=== PATIENT | male | born 1965 | race Caucasian/White ===

== ENCOUNTER → 2016-10-29 | Outpatient (CLI) | payer BC ==
[~2016-10-29] MED LIST: ABILIFY; ABILIFY PO; ABILIFY2 MG PO; ABILIFY5 MG PO; BP MED; COLACE PO; GUMMI BEAR1 TAB.CHEW PO; IMITREX; IMITREX PO; IMITREX50 MG PO; LAXATIVE8.6 M1 PO; LISINOPRIL10 MG PO; PAXIL CR PO; PAXIL CR25 MG PO; PERCOCET5/325 PO; XARELTO10 MG PO; XARELTO15 MG PO; XARELTO20 MG PO
--- NOTE | ~2016-10-29 | US140 ---
[facility] A Service [facility] RADIOLOGY TEXT RESULTS PATIENT: COLTEN LAURA LOCATION: CNIV : 65 UNIT #: [id number] AGE: [address]: DAVONTE TOMLIN SEX: M ORDER DR: [id number] [facility]. [place], [place] [address] [id number] O MR#: [id number] Acc #: [id number] NAME: COLTEN LAURA : 1965 SEX: M STUDY DATE/TIME: 10/29/2016 9:40 UNIT: CNIV ROOM: STUDY DESCRIPTION: [facility] [place] [employer] Attending Physician: Davonte Tomlin Aprn Referring Physician: Davonte Tomlin Aprn Primary Care Physician: Julissa Peñaloza M.D. MEDICAL IMAGING REPORT This report is preliminary unless electronic signature is present EXAM Right upper extremity venous duplex Doppler. INDICATIONS Phlebitis in the right forearm for 1 month. Prior history of DVT and superficial venous thrombus. Prior pulmonary embolus. TECHNIQUE Monreal-scale, color Doppler, and spectral Doppler ultrasound of the right upper extremity was performed. COMPARISON None available. FINDINGS No deep vein thrombus is identified in the right upper extremity. The right internal jugular vein, subclavian vein, axillary vein, and the brachial vein are widely patent. Where applicable, there is normal compressibility, spontaneous and phasic waveforms. No superficial venous thrombus. IMPRESSION No evidence of right extremity deep vein thrombosis. Dictated by... Alex Ghosh M.D. THIS IS AN ELECTRONICALLY VERIFIED REPORT Alex Ghosh M.D. at 10/29/2016 3:48 PM HEBER/gautam TD: 10/29/2016 12:02 [facility] A [facility] RADIOLOGY TEXT RESULTS PATIENT: COLTEN LAURA LOCATION: CNIV : 65 UNIT #: [id number] AGE: [address]: DAVONTE TOMLIN SEX: M ORDER DR: AMANDA #: [id number] MEDICAL IMAGING REPORT Page 1 of 1 COPY
== END | disposition home or self-care (01) ==
LOC: CNIV 08:48
DX: I80.8 Phlebitis and thrombophlebitis of other sites (principal)
CPT/HCPCS: 93971